=== PATIENT | male | born 1985 | race Two or more races ===

== ENCOUNTER 2024-02-23 22:28 | Emergency (ER) | payer SELFPAY ==
[~2024-02-23] VITALS: Ht 180.3 cm; Wt 93.0 kg
[2024-02-23 22:52] VITALS: BP 145/99; TEMP 98.2; O2SAT 97
[2024-02-23] MEDS ORDERED: CEPHALEXIN MONOHYDRATE 500 MG CAPSULE PO ONE (23:07)
[2024-02-23] MEDS ORDERED: HYDROCODONE/APAP 5/325MG TABLET ONE (23:07)
[2024-02-23] MEDS: CEPHALEXIN MONOHYDRATE 500 MG CAPSULE PO ONE (23:08)
[2024-02-23] MEDS ORDERED: TDAP [DIPH/PERTUSSIS/TET] 0.5 ML VIAL IM ONE (23:08)
[2024-02-23] MEDS: HYDROCODONE/APAP 5/325MG TABLET PO ONE (23:09)
[2024-02-23] MEDS: TDAP [DIPH/PERTUSSIS/TET] 0.5 ML VIAL IM ONE (23:11)
== END 2024-02-23 23:22 | disposition home or self-care (01) ==
LOC: ER 22:34
DX: S00.511A Abrasion of lip, initial encounter (principal); S00.81XA Abrasion of other part of head, initial encounter; Z60.2 Problems related to living alone; W17.89XA Other fall from one level to another, initial encounter; Y93.89 Activity, other specified; Y92.89 Other specified places as the place of occurrence of the external cause; Y99.8 Other external cause status
CPT/HCPCS: 90715